=== PATIENT | female | born 1950 | race Caucasian/White ===

== ENCOUNTER 2020-09-28 07:10 | Emergency (ER) | payer MEDICARE ==
[~2020-09-28] VITALS: Ht 175.3 cm; Wt 87.6 kg
--- NOTE | 2020-09-28 07:25 | NUR ---
CONTACT WITH PT, 69 YR OLD FEMALE HERE WITH C/O "LEFT LOWER LEG PAIN, SWELLING, REDNESS AND COUGH AND FEVER. BEGAN . WENT IN FOR ANOTHER COVID TEST ON THU BECAUSE I WAS SCARED. WAS CLEARED OF COVID APPROX 1 MO AGO" RACHAEL OLIVA AT BEDSIDE TO [facility] PT.
--- NOTE | 2020-09-28 07:50 | NUR ---
U/S TECH AT BEDSIDE
[2020-09-28 08:11] VITALS: BP 122/69
--- NOTE | 2020-09-28 08:11 | NUR ---
U/S COMPLETED. PT LAYING ON GURNEY, NO ACUTE DISTRESS NOTED. SR PER MONITOR. AUTO BP AND PULSE OX IN PLACE. PT AND PTS AWARE OF WAITING FOR TEST RESULTS. NO NEEDS EXPRESSED AT THIS TIME.
--- NOTE | 2020-09-28 09:10 | NUR ---
PT AWARE OF WAITING FOR MD RE-EVAL. PT PROVIDED WITH PO FLUIDS. NO OTHER NEEDS EXPRESSED AT THIS TIME.
--- NOTE | 2020-09-28 09:29 | NUR ---
DR RHOADES AT BEDSIDE TO EVAL PT. QUESTIONS ANSWERED. NO IV TO DC. REVIEWED DC INSTRUCTIONS WITH PT AND PTS . UNDERSTANDING VERBALIZED. PT TO LEAVE AMBULATORY.
== END 2020-09-28 09:32 | disposition home or self-care (01) ==
LOC: ED 09:18
DX: L03.116 Cellulitis of left lower limb (principal); M79.89 Other specified soft tissue disorders; M79.662 Pain in left lower leg; R05 Cough; R50.9 Fever, unspecified; F17.200 Nicotine dependence, unspecified, uncomplicated
CPT/HCPCS: 93005; 99284

== ENCOUNTER → 2021-04-04 | Outpatient (CLI) | payer MEDICARE | END | disposition home or self-care (01) | LOC: CFH 08:29 | PROVIDERS: ATTEND Internal Medicine | DX: Z12.31 Encounter for screening mammogram for malignant neoplasm of breast (principal); Z12.2 Encounter for screening for malignant neoplasm of respiratory organs; N95.8 Other specified menopausal and perimenopausal disorders; R91.8 Other nonspecific abnormal finding of lung field; F17.210 Nicotine dependence, cigarettes, uncomplicated | CPT/HCPCS: 71271; 77067; 77080 ==